=== PATIENT | female | born 1985 | race Two or more races ===

== ENCOUNTER 2021-01-23 19:01 | Emergency (ER) | payer MEDICAID ==
[~2021-01-23] VITALS: Ht 157.5 cm; Wt 58.0 kg
[2021-01-23 19:05] VITALS: BP 115/76
[2021-01-23] MEDS ORDERED: IBUP-1984 PO (20:16)
[2021-01-23] MEDS ORDERED: ACET-3209 PO (20:16)
== END 2021-01-23 20:22 | disposition home or self-care (01) ==
LOC: ER 19:02
DX: R07.89 Other chest pain (principal); R07.81 Pleurodynia; M54.2 Cervicalgia; R20.0 Anesthesia of skin; Z79.899 Other long term (current) drug therapy
CPT/HCPCS: 71101; 99283

== ENCOUNTER 2021-02-14 17:14 | Emergency (ER) | payer MEDICAID ==
[~2021-02-14] VITALS: Ht 157.5 cm; Wt 61.0 kg
[~2021-02-14 17:14] MED LIST: LIDOcaine 1% W/epiNEPHrine 1:100,000 20ml vial ONE
[2021-02-14 17:35] VITALS: BP 123/84
[2021-02-14] MEDS ORDERED: TETanus/Pertussis (Acell)/Diphther VAC/PF (Tdap-Adult) 0.5ml syringe IMVAC ONE (18:50)
[2021-02-14] MEDS ORDERED: bacitracin 15gm ointment TP ONE (18:50)
[2021-02-14] MEDS ORDERED: LIDOcaine 1% W/epiNEPHrine 1:200,000 10ml vial IJ ONE (18:50)
[2021-02-14] MEDS ORDERED: acetaminophen 325mg tablet PO ONE (19:35)
== END 2021-02-14 20:51 | disposition home or self-care (01) ==
LOC: ER 17:15
DX: S61.012A Laceration without foreign body of left thumb without damage to nail, initial encounter (principal); Z20.3 Contact with and (suspected) exposure to rabies; X58.XXXA Exposure to other specified factors, initial encounter; Y93.89 Activity, other specified; Y92.89 Other specified places as the place of occurrence of the external cause; Y99.8 Other external cause status
CPT/HCPCS: 12001; 90471; 90715; 99283

== ENCOUNTER 2021-05-29 14:50 | Emergency (ER) | payer MEDICAID ==
[~2021-05-29] VITALS: Ht 157.5 cm; Wt 54.5 kg
[2021-05-29 14:58] VITALS: BP 100/64
== END 2021-05-29 20:05 | disposition left against medical advice (07) ==
LOC: ER 14:50
DX: K04.7 Periapical abscess without sinus (principal); Z53.21 Procedure and treatment not carried out due to patient leaving prior to being seen by health care provider

== ENCOUNTER 2022-07-21 22:15 | Emergency (ER) | payer MEDICAID ==
[~2022-07-21] VITALS: Ht 157.5 cm; Wt 60.0 kg
[2022-07-21 22:21] VITALS: BP 114/76
== END 2022-07-21 22:45 | disposition left against medical advice (07) ==
LOC: ER 22:16
DX: M79.605 Pain in left leg (principal); Z53.21 Procedure and treatment not carried out due to patient leaving prior to being seen by health care provider

== ENCOUNTER 2024-12-05 17:19 | Emergency (ER) | payer MEDICAID ==
[~2024-12-05] VITALS: Ht 157.5 cm; Wt 53.0 kg
--- NOTE | 2024-12-05 18:46 | ELECTROCARDIOGRAPH REPORT ---
[facility] Test Date: 2024-12-05 Test Time: 18:43:42 Pat Name: KLAUDIA LOMAS Department: [facility]- Patient ID: [facility]-[id number] Room: Gender: F Design Consultant: : 1985 Requested By: BEN RODRIGEZ Order Number: [id number] Reading MD: Ben Rodriguez Measurements Intervals [place] Rate: 81 P: 76 OK: 136 QRS: 56 QRSD: 88 T: 86 QT: 386 QTc: 448 Interpretive Statements Sinus rhythm RSR' in V1 or V2, right VCD or RVH Electronically Signed On 12-06-2024 6:16:33 PDT by Ben Rodriguez Please click the below link to view image of tracing.
--- NOTE | 2024-12-05 18:47 | RADIOLOGY REPORT ---
CLINICAL INDICATION: Shoulder Pain TECHNIQUE: 3 views of the left shoulder DI SHOULDER, COMPLETE (MIN 2 VWS) Comparison: None FINDINGS/IMPRESSION: There is no evidence of acute fracture or dislocation. Soft tissues are unremarkable.
--- NOTE | 2024-12-05 18:53 | Physician Documentation ---
History of Present Illness ~ Chief Complaint: Mechanical Fall Stated Complaint: LT ARM PAIN DUE TO FALL Time Seen by MD: 18:07 Primary Medical Doctor: none Mode of Arrival: EMS HPI This is a pleasant 39-year-old female who comes in for evaluation of potential injuries sustained in the fall. [place] [address], [place] was very [place], she developed sensation of nonpitting loss of consciousness, chest pain or shortness a breath. Shortly afterwards she collapse she does not recall the event. She regained consciousness on the ground of her striking her head. She complains of a headache and left shoulder pain. She had prior episodes of syncope triggered by hot weather. No particular palliating or aggravating factors with a headache and shoulder pain. Did not attempt to treat it. Arrange emotionally the by pain. Denies any current chest pain or difficulty breathing. Medication Reconciliation Allergies: Coded Allergies: No Known Allergies (Unverified , 07/21/22) Past Medical History Past Medical History: No Pertinent History Past Surgical History: noncontributory Alcohol Use: None Drug Use: none Lives In: Home Review of Systems ROS 10 point review of systems was performed and unless noted above in HPI is negative for acute process/complaint. Physical Exam Vital Signs: Temperature: 98.0, Source: Temporal, Heart Rate: 85, Respiratory Rate: 16, BP: 113/79, Pulse Oximetry: 94, Weight: 53.000 Oxygen Flow Rate: 0 Physical Exam Physical examination: GENERAL: Awake, alert, oriented, GCS 15, no apparent distress, non-toxic appearing, answers questions, follows commands appropriately. HEENT: Atraumatic, normocephalic, pupils equal, extraocular muscles intact Active gross movements, sclerae anicteric, mucus membranes moist, no stridor. NECK: Midline, no JVD CARDIOVASCULAR: Good skin perfusion without evidence of pallor, mottling. PULMONARY: Nonlabored, symmetric chest rise, no audible wheezing, no accessory muscle use, no respiratory distress, speaking in full sentences. GASTROINTESTINAL: Not distended. NEUROLOGIC: Lucid with normal mental status. Normal facial symmetry. Moves all extremities symmetrically and with purpose. No truncal ataxia. Speech is fluid without evidence of dysarthria or aphasia, no focal deficits appreciated. EXTREMITIES: Acute deformities Skin: warm, dry PSYCHIATRIC: Normal affect, normal insight, normal concentration. Focused exam: [] The shoulder is in the sling. Range of motion limited by pain. Neurovascularly intact distally. Progress Results/Orders Results/Orders Orders - EMILY RODRIGEZ DO Orthostatic Vs (12/05/24 ) Chest,Single View (12/05/24 ) Completed Orders - EMILY RODRIGEZ DO Electrocardiogram (12/05/24 18:39) Cbc/Diff (12/05/24 18:39) PBNP (12/05/24 18:39) MG (12/05/24 18:39) Hs Troponin I W Calculations (12/05/24 18:39) CMP (12/05/24 18:39) Normal Saline 1000ml (Sodium Chloride 10 (12/05/24 18:50) D-Dimer (12/05/24 18:49) Chest,Single View (12/05/24 ) Medications Received in ER Medications (Trade) Dose Ordered Sig/Jona Route PRN Reason Start Time Stop Time Status Last Admin Dose Admin Sodium Chloride 1,000 ml @ 1,000 mls/hr ONCE ONCE IV 12/05/24 18:50 12/05/24 19:49 DC 12/05/24 19:55 1,000 MLS/HR Vital Signs 12/05/24 12/05/24 12/05/24 17:28 18:32 19:55 Temp 98.0 98.0 Pulse 85 64 Resp 16 16 B/P (MAP) 113/79 111/78 (89) Pulse Ox 94 97 O2 Flow Rate 0 0 Laboratory Tests Test 12/05/24 18:51 White Blood Count 6.1 Red Blood Count 3.89 L Hemoglobin 12.7 Hematocrit 38.3 Mean Corpuscular Volume 98.4 H Mean Corpuscular Hemoglobin 32.6 H Mean Corpuscular Hemoglobin Concent 33.1 Red Cell Distribution Width 13.6 Platelet Count 319 Mean Platelet Volume 7.0 L Neutrophils (%) (Auto) 51.8 Lymphocytes (%) (Auto) 38.6 Monocytes (%) (Auto) 7.9 Eosinophils (%) (Auto) 1.4 Basophils (%) (Auto) 0.3 Neutrophils # (Auto) 3.2 Lymphocytes # (Auto) 2.3 Monocytes # (Auto) 0.5 Eosinophils # (Auto) 0.1 Basophils # (Auto) 0.0 CBC Comment D-Dimer 0.28 D-Dimer Comment Sodium Level 139 Potassium Level 4.0 Chloride Level 106 Carbon Dioxide Level 24.3 Anion Gap 9 Blood Urea Nitrogen 8 Creatinine 0.68 Estimated GFR/1.73 m2 > 90 BUN/Creatinine Ratio 11.8 Glucose Level 88 Calcium Level 8.0 L Magnesium Level 2.2 Total Bilirubin 0.2 Aspartate Amino Transf (AST/SGOT) 15 Alanine Aminotransferase (ALT/SGPT) 14 Alkaline Phosphatase 52 Troponin I High Sensitivity < 4 L Troponin I High Sens Percent Delta Troponin I Hi Sens Absolute Change Pro-B-Type Natriuretic Peptide 80 Total Protein 6.9 Albumin 3.5 Globulin 3.4 Albumin/Globulin Ratio 1.0 L Chemistry Comments EKG/XRAY/CT/US/VASC/MRI EKG : Additional Comment EKG was obtained and interpreted by myself showing sinus rhythm of 81, normal WI interval, narrow QRS, no QT prolongation, normal axis, there is no evidence of STEMI. Evidence of pre-excitation or Brugada. Medical Decision Making Findings Facility Status: ED Holds, E process The plan was discussed with the patient, who demonstrates clear understanding of the plan and is in agreement with the plan unless otherwise noted in the chart. All questions have been answered, all concerns were addressed unless otherwise documented. I was available throughout their ED stay for frequent reassessment and questions. Differential Diagnoses (considered and possible or likely): [Ground level fall, acute traumatic pain, left shoulder contusion versus fracture versus dislocation, closed head injury, concussion, subdural, subarachnoid, cervical spine fracture or subluxation, with respect to cause for the collapse, most likely represents vasovagal syncope secondary to heat exhaustion, electrolyte derangement, dehydration, less likely orthostatic event, less likely malignant arrhythmia.] ??Differential Diagnoses (considered and unlikely, not requiring evaluation currently): [No evidence of lateralizing signs to suspect a stroke] MDM Data Please see HPI for the following: Independent Historians and external Records Review. Historian: [Patient] Independent Historians: ?[None] Medication Management: [Reviewed medication list] Social History and determinants: [Reviewed] Please see the body of the note for the following: Any independent i nterpretations of ECG, imaging studies. All vitals signs/haemodynamics, ordered tests were independently reviewed and interpreted by myself. Nursing triage complaint and vitals reviewed, additional nursing notes were reviewed as available and I agree unless otherwise noted or documented in contradiction in the chart Vital Signs: Independently reviewed Labs: Independently interpreted Imaging: Independently interpreted Old Medical Records: Independently reviewed, see HPI for relevant summary and information Pulse Oximetry: [99%] interpreted as [normal on room air] by me [Staff Therapist: [Regular Rate, Regular rhythm, no ectopy, NSR] reviewed and interpreted by me] Additionally notably showing: [Hemodynamics reviewed. The patient is not febrile,, no evidence of hypotension respiratory distress. Laboratory studies reviewed. CBC is normal without evidence of any and all leukocytosis. Chemistry is unremarkable. Troponin is negative. The BNP is undetectable. D-dimer is negative. Shoulder x-ray shows no acute fracture or dislocation. Chest x-ray was obtained showing no acute abnormality] Tests considered but not ordered include: [CT angiography has been considered but does not appear to be necessary based on negative D-dimer] Social Determinants of Health Impact: Patient was evaluated in [facility] [place] to healthcare due to below par ratio of patient to medical providers. [] Comorbid Conditions Impacting Present Evaluation and Care/Treatment: [History of vasovagal/heat related syncope] Management Discussions with other Healthcare Providers: [None] Treatment and Disposition Medication Management (Given or considered): [Fluid resuscitation was provided for treatment of clinically and/or laboratory apparent dehydration.]. See EMR for details Consideration for Hospitalization/Escalation/Deescalation of Care: Admission for observation has been considered, [however the patient is able to tolerate p.o., their symptoms are controlled, they are able to rely on oral medications, and their chief complaint/diagnosis can be managed on outpatient basis.] ?ED Course:?[No clinical deterioration. Low risk syncope. No shoulder fracture.] ?Shared decision making:?[Patient is hemodynamically stable for discharge home with follow with their primary care provider. [ ] Specific and cautious return precautions provided and discussed with full understanding. Any incidental findings were also discussed and follow up recommendations given. [] All questions answered. Patient/family were able to verbalize back return precautions. Patient/family agree to plan. Copies of imaging and laboratory studies were provided.] Code status:?FULL Please see the full Electronic Medical Record for full details of nursing documentation, medications list, other records of complete past medical history and conditions, vital signs, laboratory studies, and any radiologic study interpretations by radiologists. Portions of this note were completed using [employer] dictation software and as a result there may exist minor errors in spelling. I have reviewed elements of past family and social history and agree as included in note. Departure Disposition: HOME / SELF CARE / HOMELESS Impression: Primary Impression: Vasovagal syncope Additional Impressions: Ground-level fall Acute traumatic pain Closed head injury Contusion of left shoulder Condition: Improved Discharge Instructions: Contusion, Preventing Heat Exhaustion, Adult Referrals: NO PRIMARY CARE PROVIDER (PCP) Education Educated: Patient Educated regarding: diagnosis, treatment, prognosis, need for follow up Signature Scribe Signature: No scribe Attestation: This note accurately reflects clinical decisions, work performed by myself, DO ELIA Bui NICHOLAS M DO Dec 05, 2024 18:53
[2024-12-05 19:13] LABS: D-DIMER 0.28 MG/L FEU (0-0.50)
--- NOTE | 2024-12-05 19:16 | RADIOLOGY REPORT ---
CHEST RADIOGRAPH Indication: Syncope Technique: Single frontal view of the chest was obtained COMPARISON: Chest AP 01/23/21 FINDINGS: Lines and Tubes: None Lungs: Clear Pleura: No effusion. No pneumothorax. Cardiomediastinal contours: Unremarkable IMPRESSION: No abnormality demonstrated.
[2024-12-05 19:17] LABS: ALANINE AMINOTRANSFERASE 14 U/L (12-78); ALBUMIN 3.5 G/DL (3.4-5.0); ALKALINE PHOSPHATASE 52 IU/L (46-116); ANION GAP 9 (8-16); ASPARTATE AMINO TRANSFERASE 15 U/L (10-37); BILIRUBIN,TOTAL 0.2 MG/DL (0.1-1.0); BLOOD UREA NITROGEN 8 MG/DL (7-18); BUN/CREATININE RATIO 11.8 (10.0-20.0); CHLORIDE 106 MMOL/L (99-107); CREATININE 0.68 MG/DL (0.40-0.90); GLUCOSE 88 MG/DL (70-104); SODIUM 139 MMOL/L (135-145); TOTAL CARBON DIOXIDE 24.3 MMOL/L (24-32); TOTAL PROTEIN 6.9 G/DL (6.4-8.2); eCRCL 88 ML/MIN; eGFR > 90 ML/MIN
[2024-12-05 19:25] LABS: MAGNESIUM 2.2 MG/DL (1.5-2.4); PRO BRAIN NATRIURETIC PEPTIDE 80 PG/ML (0-125)
[2024-12-05 19:32] LABS: BASOPHILS % (AUTO) 0.3 % (0-1); EOSINOPHILS # (AUTO) 0.1 X10'3 (0-0.9); EOSINOPHILS % (AUTO) 1.4 % (0-6); HEMATOCRIT 38.3 % (35.0-45.0); HEMOGLOBIN 12.7 g/dl (12.0-16.0); LYMPHOCYTES # (AUTO) 2.3 X10'3 (1.1-4.8); LYMPHOCYTES % (AUTO) 38.6 % (21-51); MEAN CORPUSCULAR HEMOGLOBIN 32.6 PG (27.0-31.0); MEAN CORPUSCULAR HGB CONC 33.1 g/dL (33.0-36.5); MEAN CORPUSCULAR VOLUME 98.4 FL (78-98); MONOCYTES # (AUTO) 0.5 X10'3 (0-0.9); MONOCYTES % (AUTO) 7.9 % (2-12); NEUTROPHILS # (AUTO) 3.2 X10'3 (1.8-7.7); NEUTROPHILS % (AUTO) 51.8 % (42-75); PLATELET COUNT 319 X10'3 (140-440); RED BLOOD COUNT 3.89 X10'6 (4.20-5.60); RED CELL DISTRIBUTION WIDTH 13.6 % (11.5-14.5); WHITE BLOOD COUNT 6.1 X10'3 (4.5-11.0)
[2024-12-05 19:55] VITALS: BP 111/78; PULSE 64; RESP 16; O2SAT 97
[2024-12-05] MEDS: normal saline 1000ml 1,000 ML IV ONE (19:55)
[2024-12-05] MEDS: ketorolac trometh 30MG/ML vial 30 MG/ML VIAL IV ONE (20:38)
[2024-12-05 20:54] VITALS: TEMP 98
== END 2024-12-05 20:55 | disposition home or self-care (01) ==
LOC: ER 17:20
DX: R55 Syncope and collapse (principal); S40.012A Contusion of left shoulder, initial encounter; S09.90XA Unspecified injury of head, initial encounter; G89.11 Acute pain due to trauma; W18.30XA Fall on same level, unspecified, initial encounter; Y93.01 Activity, walking, marching and hiking; Y92.89 Other specified places as the place of occurrence of the external cause; Y99.8 Other external cause status
CPT/HCPCS: 36415; 71045; 73030; 80053; 83735; 83880; 84484; 85025; 85379; 93005; 96361; 96374; 99285; J1885; J7030